=== PATIENT | male | born 1970 | race Caucasian/White ===

== ENCOUNTER → 2016-10-07 | Outpatient (CLI) | payer OTHER ==
[2016-10-07 07:12] LABS: HEMATOCRIT 44.9 % (42.0-52.0); HEMOGLOBIN 15.9 g/dL (14.0-18.0); MEAN CORPUSCULAR HGB CONC 35.4 g/dL (33-37); MEAN PLATELET VOLUME 9.4 FL (7.4-12.2); RDW COEFFICIENT OF VARIATION 13.4 % (11.5-14.5); RED BLOOD COUNT 5.13 10^6/uL (4.70-6.10); WHITE BLOOD COUNT 7.6 10^3/uL (4.8-10.8)
[2016-10-07 07:23] LABS: ASPARTATE AMINO TRANSFERASE 44 IU/L (21-57); BILIRUBIN,TOTAL 0.6 mg/dL (0.3-1.2); BLOOD UREA NITROGEN 16 mg/dL (7-22); BUN/CREATININE RATIO 14.54 (6-20); CALCIUM 9.8 mg/dL (8.7-10.7); CHLORIDE 102 meq/L (98-112); CREATININE 1.1 mg/dL (0.70-1.50); EST GLOMERULAR FILTRATION > 60 (>60 ml/min/1.73m(2)); GLUCOSE 108 mg/dL (78-110); HDL CHOLESTEROL 39 mg/dL (40-150); POTASSIUM 4.2 meq/L (3.8-5.2); SODIUM 142 meq/L (135-145); TOTAL PROTEIN 8.2 g/dL (6.1-8.0); TRIGLYCERIDES 95 mg/dL (44-200)
== END ==
LOC: LAB 06:58
PROVIDERS: ATTEND Family Medicine
DX: I10 Essential (primary) hypertension (principal); E78.5 Hyperlipidemia, unspecified; F17.210 Nicotine dependence, cigarettes, uncomplicated
CPT/HCPCS: 36415; 80053; 80061; 85027